=== PATIENT | male | born 1975 | race Hispanic/Latino ===

== ENCOUNTER 2017-01-22 03:21 | Emergency (ER) | payer MEDICAID ==
[2017-01-22 03:43] VITALS: BMI 34.0
[2017-01-22 03:45] VITALS: BP 146/83; PULSE 85; RESP 18; TEMP 98.9; O2SAT 98
--- NOTE | 2017-01-22 04:02 | ED PDOC ---
HPI: Eye Injury/Pain Time Seen by Provider: 01/22/17 03:48 Chief Complaint (Nursing): Eye Problem Chief Complaint (Provider): left eye irritation History Per: Patient History/Exam Limitations: no limitations Onset/Duration Of Symptoms: Hrs Current Symptoms Are (Timing): Still Present Additional History Per: Patient Additional Complaint(s): 41 y/o male presents for eval of left eye irritation x 4 hours. Patient states symptoms noted as "pain" in left eye, as if "something was in there". Patient states he applied a warm compress to eye and fell asleep for 2 hours and when he woke up he noted redness to left eye, with yellow drainage. Patient notes redness around left eye to develop after that, notes it started after he was rubbing eye. Denies fever, headache, trauma to eye, vision changes, pain upon moving eyes. Past Medical History Reviewed: Historical Data, Nursing Documentation, Vital Signs Vital Signs: Last Vital Signs Temp 98.9 F 01/22/17 03:42 Pulse 85 01/22/17 03:42 Resp 18 01/22/17 03:42 BP 146/83 01/22/17 03:42 Pulse Ox 98 01/22/17 03:42 - Medical History PMH: Back Problems, Kidney Stones, Chronic Kidney Disease - Surgical History Surgical History: No Surg Hx - Family History Family History: States: Unknown Family Hx - Home Medications Home Medications: Ambulatory Orders Medication Instructions Recorded Polymyxin/Trimethoprim Sulfate 1 drop OS QID #1 bottle 01/22/17 [Polytrim Ophth Soln] - Allergies Allergies/Adverse Reactions: Allergies Allergy/AdvReac Type Severity Reaction Status Date / Time No Known Allergies Allergy Verified 01/22/17 03:42 Review of Systems ROS Statement: Except As Marked, All Systems Reviewed And Found Negative Eyes: Positive for: Pain (left), Redness (left) Physical Exam - Reviewed Nursing Documentation Reviewed: Yes Vital Signs Reviewed: Yes - Physical Exam Appears: Positive for: Well, Non-toxic, No Acute Distress Head Exam: Positive for: ATRAUMATIC, NORMAL INSPECTION, NORMOCEPHALIC Eye Exam: Positive for: EOMI, PERRL, Conjunctival injection (left with + yellow drainage). Negative for: Periorbital swelling, Periorbital tenderness Cardiovascular/Chest: Positive for: Regular Rate, Rhythm Respiratory: Positive for: Normal Breath Sounds Neurologic/Psych: Positive for: Alert, Oriented - ECG O2 Sat by Pulse Oximetry: 98 - Progress ED Course And Treament: left eye anesthesized with 2 drops tetracaine; fluro stain reveals small speck of uptake medial border of cornea Patient educated on findings, discharged with rx polytrim. Advised follow up optho 2-3 days. Return to ED for worsening/concerning sympotms. Disposition - Clinical Impression Clinical Impression: Conjunctivitis, Corneal abrasion - Patient ED Disposition Is Patient to be Admitted: No Counseled Patient/Family Regarding: Studies Performed, Diagnosis, Need For Followup, Rx Given - Disposition Referrals: Ashvin Brown MD [Staff Provider] - Disposition: Routine/Home Disposition Time: 04:07 Condition: IMPROVED Prescriptions: Polymyxin/Trimethoprim Sulfate [Polytrim Ophth Soln] 1 drop OS QID #1 bottle Instructions: Conjunctivitis (ED), Corneal Abrasion (ED)
== END 2017-01-22 04:26 | disposition home or self-care (01) ==
LOC: H.ER 03:21
DX: H10.9 Unspecified conjunctivitis (principal); N18.9 Chronic kidney disease, unspecified

== ENCOUNTER 2018-10-09 02:37 | Emergency (ER) | payer OTHER ==
[2018-10-09 02:37] VITALS: BMI 34.0
[2018-10-09] MEDS ORDERED: Sodium Chloride 0.9% 1,000 ML IV STA (03:25)
--- NOTE | 2018-10-09 03:36 | ED PDOC ---
HPI: Abdomen Time Seen by Provider: 10/09/18 03:24 Chief Complaint (Nursing): GI Problem Chief Complaint (Provider): GI Problem History Per: Patient History/Exam Limitations: no limitations Onset/Duration Of Symptoms: Days (x2) Current Symptoms Are (Timing): Still Present Location Of Pain/Discomfort: Diffuse Quality Of Discomfort: Cramping, "Pain" Associated Symptoms: Nausea, Vomiting, Diarrhea Additional Complaint(s): 43 year old male with a history of a previous GI bleed presents to the ED with cramping abdominal pain associated with nausea, vomiting and diarrhea, onset today. Patient reports three episodes of watery, loose diarrhea and non-bloody, non-bilious vomiting. Denies fever. Offers no other complaints. PMD: Dr. Juan Turner Past Medical History Reviewed: Historical Data, Nursing Documentation, Vital Signs Vital Signs: Last Vital Signs Temp 98.7 F 10/09/18 03:11 Pulse 100 H 10/09/18 03:11 Resp 18 10/09/18 03:11 BP 130/77 10/09/18 03:11 Pulse Ox 98 10/09/18 03:11 - Medical History PMH: Back Problems, Gastritis, Kidney Stones, Chronic Kidney Disease Other PMH: GI bleed - Surgical History Surgical History: No Surg Hx - Family History Family History: States: Unknown Family Hx - Home Medications Home Medications: Ambulatory Orders Medication Instructions Recorded Polymyxin/Trimethoprim Sulfate 1 drop OS QID #1 bottle 01/22/17 [Polytrim Ophth Soln] Dicyclomine [Bentyl] 20 mg PO Q12 PRN #10 tab 10/09/18 Ondansetron ODT [Zofran ODT] 4 mg PO Q6 PRN #8 odt 10/09/18 - Allergies Allergies/Adverse Reactions: Allergies Allergy/AdvReac Type Severity Reaction Status Date / Time No Known Allergies Allergy Verified 01/22/17 03:42 Review of Systems ROS Statement: Except As Marked, All Systems Reviewed And Found Negative Constitutional: Negative for: Fever, Chills Gastrointestinal: Positive for: Nausea, Vomiting, Abdominal Pain, Diarrhea. Negative for: Constipation, Melena, Hematochezia, Hematemesis Physical Exam - Reviewed Nursing Documentation Reviewed: Yes Vital Signs Reviewed: Yes - Physical Exam Appears: Positive for: Non-toxic, No Acute Distress Head Exam: Positive for: ATRAUMATIC, NORMAL INSPECTION, NORMOCEPHALIC Skin: Positive for: Normal Color, Warm, Dry Eye Exam: Positive for: EOMI, Normal appearance, PERRL Neck: Positive for: Normal, Painless ROM, Supple Cardiovascular/Chest: Positive for: Regular Rate, Rhythm. Negative for: Murmur Respiratory: Positive for: Normal Breath Sounds. Negative for: Respiratory Distress Gastrointestinal/Abdominal: Positive for: Normal Exam, Soft. Negative for: Tenderness Back: Positive for: Normal Inspection. Negative for: L CVA Tenderness, R CVA Tenderness Extremity: Positive for: Normal ROM (x 4). Negative for: Deformity Neurologic/Psych: Positive for: Alert, Oriented (x 3). Negative for: Motor/Sensory Deficits - Laboratory Results Result Diagrams: 10/09/18 03:30 10/09/18 03:30 - ECG O2 Sat by Pulse Oximetry: 98 (RA) Pulse Ox Interpretation: Normal Medical Decision Making Medical Decision Makin:24 Impression: 43 year old male with abdominal pain, vomiting and diarrhea Initial Plan: --CBC --CMP --Lipase --Zofran 4 mg IV --Bentyl 20 mg PO --NS IV 05:21 Labs reviewed and reveal no clinically significant abnormalities. Patient is stable for discharge. Diagnosis is gastroenteritis. Scribe Attestation: Documented by Amee Lawson acting as a scribe for Ang Livingston MD Provider Scribe Attestation: All medical record entries made by the Scribe were at my direction and personally dictated by me. I have reviewed the chart and agree that the record accurately reflects my personal performance of the history, physical exam, medical decision making, and the department course for this patient. I have also personally directed, reviewed, and agree with the discharge instructions and disposition. Disposition - Clinical Impression Clinical Impression: Gastroenteritis - Patient ED Disposition Is Patient to be Admitted: No - Disposition Disposition Time: 05:21 Condition: STABLE Prescriptions: Dicyclomine [Bentyl] 20 mg PO Q12 PRN #10 tab PRN Reason: abdominal pain/diarrhea Ondansetron ODT [Zofran ODT] 4 mg PO Q6 PRN #8 odt PRN Reason: Nausea/Vomiting Instructions: Diarrhea in Adolescents and Adults Forms: [facility] (Turkish)
[2018-10-09 04:55] LABS: BASO % 0.1 % (0.0-2.0); EOS # 0.2 K/uL (0.0-0.7); EOS % 1.6 % (0.0-4.0); HEMOGLOBIN 13.4 g/dL (12.0-18.0); LYMPH # 0.7 K/uL (1.0-4.3); LYMPH % 6.7 % (20.0-40.0); MEAN CELL VOLUME 87.5 fl (80.0-94.0); MEAN CORPUSCULAR HEMOGLOBIN 29.7 pg (27.0-31.0); MEAN CORPUSCULAR HGB CONC 33.9 g/dL (33.0-37.0); MEAN PLATELET VOLUME 8.3 fl (7.2-11.7); MONO # 0.3 K/uL (0.0-0.8); MONO % 2.8 % (0.0-10.0); NEUT # 9.4 K/uL (1.8-7.0); NEUT % 88.8 % (50.0-75.0); NRBC % 0.1 % (0.0-0.0); PLATELET COUNT 206 K/uL (130-400); RBC 4.52 Mil/uL (4.40-5.90); RED CELL DISTRIBUTION WIDTH 12.6 % (11.5-14.5); WHITE BLOOD COUNT 10.6 K/uL (4.8-10.8)
[2018-10-09 04:58] LABS: ALB/GLOB RATIO 1.3 (1.0-2.1); ALBUMIN 4.5 g/dL (3.5-5.0); ALT/SGPT 42 U/L (21-72); AST/SGOT 32 U/L (17-59); BLOOD UREA NITROGEN 22 mg/dl (9-20); CALCIUM 9.5 mg/dL (8.4-10.2); GFR NON-AFRICAN AMERICAN > 60; LIPASE 48 U/L (23-300)
[2018-10-09 05:20] VITALS: BP 132/89; PULSE 78; RESP 16; TEMP 98.6
[2018-10-09 05:24] LABS: BASOPHIL 1 % (0-2); LYMPHOCYTE 4 % (20-50); MONOCYTE 2 % (0-10); NEUTROPHIL 93 % (42-75); PLATELET ESTIMATE NORMAL (NORMAL); TOTAL CELLS COUNTED 100
[2018-10-09 05:25] LABS: ANISOCYTOSIS SLIGHT; OVALOCYTES SLIGHT; POIKILOCYTOSIS SLIGHT
[2018-10-09 05:26] VITALS: O2SAT 98
== END 2018-10-09 05:35 | disposition home or self-care (01) ==
LOC: H.ER 02:37
DX: K52.9 Noninfective gastroenteritis and colitis, unspecified (principal)
CPT/HCPCS: 80053; 83690; 85025; 96360; 99284; J2405; J7030